=== PATIENT | female | born 1960 | race Caucasian/White ===

== ENCOUNTER → 2017-08-04 | Outpatient (CLI) | payer BC | LOC: MAMMO 09:17 | PROVIDERS: ATTEND Family Medicine | DX: Z12.31 Encounter for screening mammogram for malignant neoplasm of breast (principal) | CPT/HCPCS: 77063; G0202 ==

== ENCOUNTER → 2017-08-04 | Outpatient (CLI) | payer BC, SELFPAY ==
--- NOTE | 2017-08-05 12:57 | MAM ---
EXAM DESCRIPTION: 3D Screening BILATERAL CLINICAL HISTORY: 57 years Female SCREENING no complaints. No family history of breast cancer. Postmenopausal. No HRT prior cyst aspiration and biopsy on the left benign.. COMPARISON: 2-D digital screening bilateral study 10/15/2014. No prior reports available. TECHNIQUE: Bilateral CC and MLO projection full-field images, 3-D tomosynthesis digital mammographic technique. Also bilateral synthesized CC/ MLO full-field images. CAD not utilized. FINDINGS: The breast parenchymal density pattern is: Scattered areas of fibroglandular density. No skin thickening or nipple retraction bilateral solitary microcalcifications. Focal asymmetry middle third of the right breast at the 1200 clock position, approximately 6 cm from the nipple which is inverted. No focal, stellate mass or density, focal asymmetry , and no suspicious microcalcifications left breast. IMPRESSION: BI-RADS CATEGORY: 0 - INCOMPLETE- Need additional imaging evaluation. FOLLOW-UP: Recall for additional imaging: Targeted ultrasound of the region of interest in the middle third of the right breast. Written communication concerning the IMPRESSION and Follow-up, will be mailed to the patient and referring health care provider. Electronically signed by: Roger Cuello MD 08/05/2017 12:56 PM CDT
--- NOTE | 2017-08-05 15:19 | CT ---
EXAM DESCRIPTION: Chest w/o Contrast: CT. CLINICAL HISTORY: PULMONARY NODULE COMPARISON: Chest CT scan 06/10/2015. TECHNIQUE: Spiral-axial scans at 5.0 mm intervals through the lungs and thorax without IV contrast. 2.5 mm lung algorithm axial reconstructions. Coronal and sagittal 2.0 Mm reconstructions. Total Exam DLP: 687.6 mGy-cm. This exam was performed according to our departmental dose-optimization program which includes automated exposure control, adjustment of the mA and/or kV according to patient size and/or use of iterative reconstruction technique; to reduce radiation dose to as low as reasonably achievable (ALARA). FINDINGS: 4 mm soft tissue nodule subpleural left lower lobe with small pleural tag and no calcification (series 4, image 83). Stable. Second small focal pleural thickening. 5 mm soft tissue nodule in the inferior lingula also subpleural lateral (image 68) stable. 5 mm subpleural nodule noncalcified lateral upper lingula (image 54) stable. Apical pleural thickening right upper lobe unchanged. 6.3 mm long axis and 5.5 mm short axis (mean diameter 5.7 mm) soft tissue noncalcified nodule subpleural superior segment right lower lobe with smooth borders and no spiculations (image 66), stable. 4 mm soft tissue noncalcified nodule with lobulated borders subpleural right lower lobe (image 76) stable. No pleural effusion or pneumothorax bilaterally. Heterogeneous density of the thyroid gland with no adjacent adenopathy or soft tissue masses in the neck base. No enlarged lymph nodes in the mediastinum or hilum; sensitivity limited due to lack of IV contrast. Enlarged axillary lymph nodes. Coronary artery calcifications. No subdiaphragmatic fluid or free air in the included peritoneal space. Normal size and density of the adrenal glands and spleen. Gallbladder is visualized. Included pancreas unremarkable. Minimal thoracic spondylosis. No bony thoracic destructive lesions. IMPRESSION: 1. Multiple soft tissue noncalcified bilateral pulmonary nodules, mostly subpleural location. Largest is 5.9 mm (mean diameter is ( in the right lower lobe. Appears stable since the prior study. Because of relatively stable size over two year interval, consider follow-up CT scan at two-year interval. Please refer to 2017 Fleischner Society recommendations for multiple solid lung nodules below*. 2. No mediastinal or hilar adenopathy, sensitivity decreased by lack of IV contrast. No acute lung findings or significant changes since the prior study. *2017 Fleischner Society Recommendations for Multiple Solid Lung Nodules Follow-Up base on size (average of long- and short-axis diameters). Use most suspicious nodule for followup. Nodule Size <6 mm Low-Risk Patient: No routine follow-up Nodule Size <6 mm High-Risk Patient: Optional CT at 12 months Electronically signed by: Roger Cuello MD 08/05/2017 3:17 PM CDT
== END | disposition home or self-care (01) ==
LOC: CT 09:17
PROVIDERS: ATTEND Family Medicine
DX: R91.1 Solitary pulmonary nodule (principal)
CPT/HCPCS: 71250; 77063; G0202

== ENCOUNTER → 2017-08-04 | Outpatient (CLI) | payer BC | END | disposition home or self-care (01) | LOC: MAMMO 09:37 | PROVIDERS: ATTEND Family Medicine | DX: R30.0 Dysuria (principal) ==

== ENCOUNTER → 2017-08-04 | Outpatient (CLI) | payer BC | END | disposition home or self-care (01) | LOC: GMAB 10:35 | PROVIDERS: ATTEND Family Medicine | DX: Z79.899 Other long term (current) drug therapy (principal) ==

== ENCOUNTER → 2017-08-19 | Outpatient (CLI) | payer BC, SELFPAY ==
--- NOTE | 2017-08-20 02:09 | MRI ---
EXAM DATE: 08/19/2017 2:00 PM CDT. PROCEDURE: MR THORACIC SPINE WITHOUT IV CONTRAST. INDICATION: PAIN. COMPARISON: Chest CT 06/10/2015. TECHNIQUE: Multiplanar T1 and T2 MRI images of the thoracic spine were acquired without administration of intravenous contrast. FINDINGS: The thoracic vertebral bodies demonstrate normal height and alignment. There is mild intervertebral disc space height loss most prominent at T7-T8 and T8-T9 with desiccation. Normal marrow signal. The thoracic cord demonstrates normal signal and morphology. The T1-T5 levels are only partially evaluated on sagittal images. No significant spinal canal or neural foraminal stenosis is noted at these levels. T7-T8: A small central disc extrusion is noted at this level contacting and indenting the ventral thoracic cord. There is no spinal canal stenosis or neural foraminal stenosis. The remainder of the thoracic vertebral levels demonstrates no significant spinal canal or neural foraminal stenosis. The partially visualized thoracic and upper abdominal organs are unremarkable. IMPRESSION: A small central disc extrusion at T7-T8 indents the ventral thoracic cord. There is no significant spinal canal stenosis. The remainder of the thoracic spine is overall unremarkable. No cord signal abnormality. Electronically signed by: David Montes De Oca MD 08/20/2017 2:08 AM CDT
== END | disposition home or self-care (01) ==
LOC: MRI 13:53
PROVIDERS: ATTEND Family Medicine
DX: M54.6 Pain in thoracic spine (principal)

== ENCOUNTER → 2017-09-05 | Outpatient (CLI) | payer BC | END | disposition home or self-care (01) | LOC: GMAB 11:25 | PROVIDERS: ATTEND Family Medicine | DX: R94.5 Abnormal results of liver function studies (principal) ==

== ENCOUNTER → 2017-09-05 | Outpatient (CLI) | payer OTHER, SELFPAY ==
--- NOTE | 2017-09-05 11:25 | US ---
EXAM DESCRIPTION: Breast,Right: Ultrasound CLINICAL HISTORY: 57 yearsFemaleABNORMAL MAMMO COMPARISON: Digital 3-D tomosynthesis bilateral screening breast 08/04/2017. TECHNIQUE: Transcutaneous scanning of the middle third right breast utilizing two-dimensional and Doppler modes. Scanning performed by the business reporter only. FINDINGS: Heterogeneous fibroglandular and fatty tissues at the 1200 clock position of the right breast in the middle third of the breast, 6 cm from the nipple. No discrete solid mass or cyst. No skin thickening or parenchymal edema. No dominant calcifications. IMPRESSION: BI-RADS CATEGORY: 2 - BENIGN FINDINGS. FOLLOW UP: Routine digital bilateral mammographic screening, one year interval from July 2017. Written communication explaining the IMPRESSION and follow-up, will be mailed to the patient and referring health care provider. According to the [employer], yearly mammograms are recommended starting at age 40 and continuing as long as a woman is in good health. Any breast change noted on a breast self-exam should be reported promptly to the patient's healthcare provider. Breast MRI is recommended for women with an approximately 20-25% or greater lifetime risk of breast cancer, including women with a strong family history of breast or ovarian cancer and women who have been treated for Hodgkin's disease. A negative mammographic report should not delay tissue diagnosis in patients with significant clinical history or physical findings. Extremely dense breast tissue limits the sensitivity of digital mammography. The FINDINGS and the follow-up plan were reviewed in person with the patient after the examination. Written communication explaining the IMPRESSION and follow-up will be mailed to the patient and referring care provider. Electronically signed by: Roger Cuello MD 09/05/2017 11:24 AM [facility]
== END | disposition home or self-care (01) ==
LOC: US 08-30 14:17
PROVIDERS: ATTEND Family Medicine
DX: R92.8 Other abnormal and inconclusive findings on diagnostic imaging of breast (principal)